=== PATIENT | male | born 1990 ===

== ENCOUNTER 2018-04-16 15:50 | Emergency (ER) | payer SELFPAY ==
--- NOTE | 2018-04-16 16:29 | RAD ---
LEFT HAND THREE VIEWS: History: Trauma. Left thumb pain. FINDINGS/IMPRESSION: There is a mildly displaced fracture involving the tuft of the distal phalanx of the left thumb. POS: [id number]
[2018-04-16] MEDS ORDERED: HYDROcodone/Acetaminophen 10/325 mg Tablet ONE (16:31)
[2018-04-16] MEDS ORDERED: Adacel (T-DAP) 0.5 ML VIAL ONE (16:32)
[2018-04-16] MEDS ORDERED: Lidocaine 1% w/Epinephrine 1:100K 20 ML VIAL ONE (16:32)
[2018-04-16] MEDS ORDERED: Bacitracin Zinc 1 Packet ONE (17:26)
== END 2018-04-16 18:00 | disposition home or self-care (01) ==
LOC: ERS 15:50
DX: S62.522A Displaced fracture of distal phalanx of left thumb, initial encounter for closed fracture (principal); W22.8XXA Striking against or struck by other objects, initial encounter
CPT/HCPCS: 12002; 90471; 90715; J2001